=== PATIENT | male | born 1940 | race Caucasian/White ===

== ENCOUNTER 2022-03-10 10:11 | Emergency (ER) | payer MEDICARE ==
[2022-03-10] MEDS ORDERED: SODIUM CHLORIDE 0.9% 1,000 ML IV ONE (10:18)
[2022-03-10 10:34] VITALS: TEMP 97.6
--- NOTE | 2022-03-10 11:21 | CT ---
EXAMINATION TYPE: CT brain wo con DATE OF EXAM: 03/10/2022 COMPARISON: None HISTORY: AMS CT DLP: 1135.4 mGycm Automated exposure control for dose reduction was used. FINDINGS: There is mild to moderate generalized degenerative change. Faint low-attenuation the white matter is nonspecific but most typical remote. There is no midline shift or mass effect. No acute hemorrhage. Orbits are symmetric. Changes of mild chronic ethmoidal sinusitis. Nasal septal deviation. Craniocerv ical junction maintained. Sella turcica is normal. Intracranial atherosclerotic changes are noted. IMPRESSION: DEGENERATIVE AND NONSPECIFIC WHITE MATTER CHANGES MOST TYPICAL REMOTE ISCHEMIA. NO ACUTE HEMORRHAGE O R MASS EFFECT.
[2022-03-10 12:15] LABS: Albumin 4.6 g/dL (3.5-5.0); Calcium 9.7 mg/dL (8.4-10.2); Total Protein 7.5 g/dL (6.3-8.2)
[2022-03-10 12:37] LABS: Basophils % (A) 1 %; Eosinophils # (A) 0.1 k/uL (0-0.7); Eosinophils % (A) 1 %; HCT 51.5 % (39.0-53.0); HGB 17.2 gm/dL (13.0-17.5); Lymphocytes # (A) 0.6 k/uL (1.0-4.8); Lymphocytes % (A) 9 %; MCH 31.8 pg (25.0-35.0); MCHC 33.4 g/dL (31.0-37.0); MCV 95.2 fL (80.0-100.0); Mean Platelet Volume 9.7; Monocytes # (A) 0.7 k/uL (0-1.0); Monocytes % (A) 9 %; Neutrophils % (A) 81 %; Platelet Count 113 k/uL (150-450); RBC 5.41 m/uL (4.30-5.90); RDW 13.9 % (11.5-15.5); WBC 7.4 k/uL (3.8-10.6)
[2022-03-10 12:38] LABS: INR 1.1 (<1.2); Prothrombin Time 11.7 sec (9.0-12.0)
--- NOTE | 2022-03-10 12:38 | XR ---
EXAMINATION TYPE: XR chest 2V DATE OF EXAM: 03/10/2022 12:34 PM COMPARISON: None TECHNIQUE: XR chest 2V Frontal and lateral views of the chest. CLINICAL INDICATION:Male, 81 years old with history of altered mental status; FINDINGS: Lungs/Pleura: There is no evidence of pleural effusion, focal consolidation, or pneumothorax. Pulmonary vascularity: Unremarkable. Heart/mediastinum: Cardiomediastinal silhouette is unremarkable. Musculoskeletal: Degenerative changes of the shoulder joints. IMPRESSION: No acute cardiopulmonary disease/process.
[2022-03-10 13:10] LABS: Partial Thromboplastin Time 21.7 sec (22.0-30.0)
[2022-03-10 13:22] LABS: Appearance,Urine Cloudy (Clear); Bacteria,Urine Occasional /hpf; Bilirubin,Urine 1+ (Negative); Blood,Urine Moderate (Negative); Color,Urine Yellow; Glucose,Urine (UA) Negative (Negative); Hyaline Casts,Urine 6 /lpf (0-2); Ketones,Urine 1+ (Negative); Leukocyte Esterase,Urine Trace (Negative); Mucus,Urine Few /hpf; Nitrite,Urine Negative (Negative); PH, Urine 5.5 (5.0-8.0); Protein,Urine 1+ (Negative); RBC,Urine 36 /hpf (0-5); Specific Gravity,Urine 1.028 (1.001-1.035); Squamous Epithelial Cell,Urine <1 /hpf (0-4); WBC,Urine 7 /hpf (0-5)
[2022-03-10] MEDS ORDERED: NALOXONE 0.4 MG/ML 1 ML VIAL IV PRN (13:37)
--- NOTE | 2022-03-10 13:37 | ED ---
Altered Mental Status HPI - General Chief Complaint: Altered Mental Status Stated Complaint: AMS Time Seen by Provider: 03/10/22 10:14 Source: EMS Mode of arrival: EMS Limitations: altered mental status - History of Present Illness Initial Comments: Patient presents with altered mental status. He doesn't tolerate by mouth's. There is no family in attendance. - Related Data Home Medications Medication Instructions Recorded Confirmed Acetaminophen [Tylenol] 650 mg PO Q4H PRN MDD 3900 MG 03/10/22 03/10/22 Aspirin EC [Ecotrin Low Dose] 81 mg PO DAILY@199903/10/22 03/10/22 Benazepril HCl 20 mg PO DAILY@0800 03/10/22 03/10/22 Kaolin-Pectin 30 ml PO DAILY PRN 03/10/22 03/10/22 LORazepam 1 mg PO BID PRN 03/10/22 03/10/22 Mag Hydrox/Aluminum Hyd/Simeth 15 ml PO BID PRN 03/10/22 03/10/22 [Mylanta Maximum Strength Liq] Magnesium Hydroxide [Milk of 2,400 mg PO Q48H PRN 03/10/22 03/10/22 Magnesia] QUEtiapine FUMARATE [SEROquel] 12.5 mg PO DAILY@0800 03/10/22 03/10/22 Sennosides [Senokot] 8.6 mg PO BID@0800,199903/10/22 03/10/22 Sertraline [Zoloft] 50 mg PO DAILY@0800 03/10/22 03/10/22 Sertraline [Zoloft] 100 mg PO DAILY@0803/10/22 03/10/22 Valproic Acid Oral Soln [Depakene 500 mg PO BID@0800,199903/10/22 03/10/22 Syrup] allopurinoL [Zyloprim] 300 mg PO BID@0800,199903/10/22 03/10/22 amLODIPine [Norvasc] 10 mg PO DAILY@0800 03/10/22 03/10/22 clonazePAM [KlonoPIN] 0.5 mg PO TID@0700,1400,2200 03/10/22 03/10/22 guaiFENesin SYRUP 100MG/5ML 1 dose PO Q6H PRN 03/10/22 03/10/22 [Robitussin] guaiFENesin [Mucinex] 600 mg PO BID@0800,199903/10/22 03/10/22 oxyCODONE-APAP 7.5-325MG [Percocet 1 tab PO TID@0800,1400,199903/10/22 03/10/22 7.5-325 mg] Allergies Allergy/AdvReac Type Severity Reaction Status Date / Time No Known Allergies Allergy Verified 03/10/22 11:13 Review of Systems ROS Statement: Those systems with pertinent positive or pertinent negative responses have been documented in the HPI. ROS Other: All systems not noted in ROS Statement are negative. Past Medical History Past Medical History: Dementia, Hypertension History of Any Multi-Drug Resistant Organisms: Unobtainable Past Psychological History: No Psychological Hx Reported Past Alcohol Use History: Unable to Obtain Past Drug Use History: Unable to Obtain General Exam Limitations: altered mental status Head exam: Present: atraumatic Eye exam: Present: normal appearance ENT exam: Present: normal exam Neck exam: Absent: tenderness Respiratory exam: Present: normal lung sounds bilaterally Cardiovascular Exam: Present: regular rate, normal rhythm GI/Abdominal exam: Present: soft. Absent: tenderness Extremities exam: Absent: tenderness Back exam: Absent: tenderness Neurological exam: Absent: alert, oriented X3 Skin exam: Present: warm, dry Course Vital Signs 03/10/22 10:14 Temperature 97.6 F Pulse Rate 104 H Respiratory 16 Rate Blood Pressure 111/67 O2 Sat by Pulse 93 L Oximetry Medical Decision Making - Medical Decision Making Patient presents with altered mental status. I obtained independently history from EMS as the patient was unable to provide further information. My examination the patient has no evidence of trauma. CT head was independently reviewed by me which shows no acute intracranial bleed or mass. Chest x-ray independent review by me shows no pneumonia. Laboratory studies are interpreted by myself showing acute hypernatremia. I ordered the patient 1 L IV normal saline bolus. I had a discussion regarding the patient with the physician hospitalist. Patient will be admitted to the hospital. - Lab Data Result diagrams: 03/10/22 10:25 03/10/22 10:25 Lab Results 03/10/22 03/10/22 03/10/22 Range/Units 10:25 10:25 10:25 WBC 7.4 (3.8-10.6) k/uL RBC 5.41 (4.30-5.90) m/uL Hgb 17.2 (13.0-17.5) gm/dL Hct 51.5 (39.0-53.0) % MCV 95.2 (80.0-100.0) fL MCH 31.8 (25.0-35.0) pg MCHC 33.4 (31.0-37.0) g/dL RDW 13.9 (11.5-15.5) % Plt Count 113 L (150-450) k/uL MPV 9.7 Neutrophils % 81 % Lymphocytes % 9 % Monocytes % 9 % Eosinophils % 1 % Basophils % 1 % Neutrophils # 6.0 (1.3-7.7) k/uL Lymphocytes # 0.6 L (1.0-4.8) k/uL Monocytes # 0.7 (0-1.0) k/uL Eosinophils # 0.1 (0-0.7) k/uL Basophils # 0.0 (0-0.2) k/uL PT 11.7 (9.0-12.0) sec INR 1.1 (<1.2) APTT 21.7 L (22.0-30.0) sec Sodium (137-145) mmol/L Potassium (3.5-5.1) mmol/L Chloride (98-107) mmol/L Carbon Dioxide (22-30) mmol/L Anion Gap mmol/L BUN (9-20) mg/dL Creatinine (0.66-1.25) mg/dL Est GFR (CKD-EPI)AfAm (>60 ml/min/1.73 sqM) Est GFR (CKD-EPI)NonAf (>60 ml/min/1.73 sqM) Glucose (74-99) mg/dL Calcium (8.4-10.2) mg/dL Total Bilirubin (0.2-1.3) mg/dL AST (17-59) U/L ALT (4-49) U/L Alkaline Phosphatase (38-126) U/L Ammonia (<30) umol/L Troponin I (0.000-0.034) ng/mL Total Protein (6.3-8.2) g/dL Albumin (3.5-5.0) g/dL Urine Color Yellow Urine Appearance Cloudy (Clear) Urine pH 5.5 (5.0-8.0) Ur Specific [place] 1.028 (1.001-1.035) Urine Protein 1+ H (Negative) Urine Glucose (UA) Negative (Negative) Urine Ketones 1+ H (Negative) Urine Blood Moderate H (Negative) Urine Nitrite Negative (Negative) Urine Bilirubin 1+ H (Negative) Urine Urobilinogen 3.0 (<2.0) mg/dL Ur Leukocyte Esterase Trace H (Negative) Urine RBC 36 H (0-5) /hpf Urine WBC 7 H (0-5) /hpf Ur Squamous Epith Cells <1 (0-4) /hpf Urine Bacteria Occasional H (None) /hpf Hyaline Casts 6 H (0-2) /lpf Urine Mucus Few H (None) /hpf 03/10/22 03/10/22 03/10/22 Range/Units 10:25 10:25 10:25 WBC (3.8-10.6) k/uL RBC (4.30-5.90) m/uL Hgb (13.0-17.5) gm/dL Hct (39.0-53.0) % MCV (80.0-100.0) fL MCH (25.0-35.0) pg MCHC (31.0-37.0) g/dL RDW (11.5-15.5) % Plt Count (150-450) k/uL MPV Neutrophils % % Lymphocytes % % Monocytes % % Eosinophils % % Basophils % % Neutrophils # (1.3-7.7) k/uL Lymphocytes # (1.0-4.8) k/uL Monocytes # (0-1.0) k/uL Eosinophils # (0-0.7) k/uL Basophils # (0-0.2) k/uL PT (9.0-12.0) sec INR (<1.2) APTT (22.0-30.0) sec Sodium 150 H (137-145) mmol/L Potassium 4.0 (3.5-5.1) mmol/L Chloride 112 H (98-107) mmol/L Carbon Dioxide 29 (22-30) mmol/L Anion Gap 9 mmol/L BUN 35 H (9-20) mg/dL Creatinine 1.16 (0.66-1.25) mg/dL Est GFR (CKD-EPI)AfAm 69 (>60 ml/min/1.73 sqM) Est GFR (CKD-EPI)NonAf 60 (>60 ml/min/1.73 sqM) Glucose 125 H (74-99) mg/dL Calcium 9.7 (8.4-10.2) mg/dL Total Bilirubin 1.0 (0.2-1.3) mg/dL AST 57 (17-59) U/L ALT 26 (4-49) U/L Alkaline Phosphatase 50 (38-126) U/L Ammonia <9 (<30) umol/L Troponin I 0.018 (0.000-0.034) ng/mL Total Protein 7.5 (6.3-8.2) g/dL Albumin 4.6 (3.5-5.0) g/dL Urine Color Urine Appearance (Clear) Urine pH (5.0-8.0) Ur Specific [place] (1.001-1.035) Urine Protein (Negative) Urine Glucose (UA) (Negative) Urine Ketones (Negative) Urine Blood (Negative) Urine Nitrite (Negative) Urine Bilirubin (Negative) Urine Urobilinogen (<2.0) mg/dL Ur Leukocyte Esterase (Negative) Urine RBC (0-5) /hpf Urine WBC (0-5) /hpf Ur Squamous Epith Cells (0-4) /hpf Urine Bacteria (None) /hpf Hyaline Casts (0-2) /lpf Urine Mucus (None) /hpf Disposition Clinical Impression: Altered mental status Disposition: ADMITTED IP TO THIS HOSP Condition: Fair Instructions (If sedation given, give patient instructions): Altered Mental Status (ED) Is patient prescribed a controlled substance at d/c from ED?: No Referrals: Alexx Schmidt MD [Primary Care Provider] - 1-2 days
[2022-03-10 13:39] VITALS: PULSE 82
[2022-03-10] MEDS ORDERED: SODIUM CHLORIDE 0.9% 1,000 ML IV SCH (13:45)
[2022-03-10 13:50] LABS: Amphetamine Screen,Urine Not Detected (NotDetected); Barbiturate Screen,Urine Detected (NotDetected); Benzodiazepines Screen,Urine Detected (NotDetected); Cocaine Screen,Urine Not Detected (NotDetected); Methadone Screen, Urine Not Detected (NotDetected); Opiate Screen,Urine Not Detected (NotDetected); Oxycodone Screen, Urine Detected (NotDetected); Phencyclidine Screen,Urine Not Detected (NotDetected); Tricyclic Antidepressant,Urine Detected (NotDetected); Urn Cannabinoid Scrn Not Detected (NotDetected)
[2022-03-10 14:15] LABS: Appearance,Urine Clear (Clear); Bacteria,Urine Rare /hpf; Bilirubin,Urine Negative (Negative); Blood,Urine Moderate (Negative); Color,Urine Yellow; Glucose,Urine (UA) Negative (Negative); Hyaline Casts,Urine 18 /lpf (0-2); Ketones,Urine 1+ (Negative); Leukocyte Esterase,Urine Trace (Negative); Mucus,Urine Few /hpf; Nitrite,Urine Negative (Negative); PH, Urine 5.5 (5.0-8.0); Protein,Urine 1+ (Negative); RBC,Urine 30 /hpf (0-5); Specific Gravity,Urine 1.028 (1.001-1.035); Squamous Epithelial Cell,Urine <1 /hpf (0-4); WBC,Urine 7 /hpf (0-5)
[2022-03-10 18:37] VITALS: BP 114/77; RESP 16
== END 2022-03-10 18:38 | disposition other institution (70) ==
LOC: EC 10:11
DX: R41.82 Altered mental status, unspecified (principal); I10 Essential (primary) hypertension; Z79.899 Other long term (current) drug therapy; Z79.82 Long term (current) use of aspirin
CPT/HCPCS: 36415; 70450; 71046; 80053; 80306; 81001; 82140; 84484; 85025; 85610; 85730; 87040; 93005; 96360; 96361; 99285